=== PATIENT | male | born 1995 | race Two or more races ===

== ENCOUNTER 2017-11-11 13:31 | Emergency (ER) | payer OTHER ==
[2017-11-11 14:06] LABS: ADD MAN DIFF? NO
[2017-11-11 14:08] LABS: BASO % 0 % (0-3); EOS % 0 % (0-3); HEMATOCRIT 42.6 % (39.0-53.0); HEMOGLOBIN 14.8 g/dL (13.0-17.5); LYMPH # 0.7 x10^3/uL (1.0-4.8); LYMPH % 8 % (24-48); MEAN CORPUSCULAR HEMOGLOBIN 31 pg (25-35); MEAN CORPUSCULAR HGB CONC 35 g/dL (31-37); MEAN CORPUSCULAR VOLUME 90 fL (79-100); MONO # 0.7 x10^3/uL (0.0-1.1); MONO % 8 % (0-9); NEUT # 7.5 x10^3uL (1.8-7.7); NEUT % 84 % (31-73); PLATELET COUNT 181 x10^3/uL (140-400); RED BLOOD COUNT 4.72 x10^6/uL (4.30-5.70); RED CELL DISTRIBUTION WIDTH 12.8 % (11.5-14.5)
[2017-11-11 14:16] LABS: ANION GAP 5 (6-14); BLOOD UREA NITROGEN 9 mg/dL (8-26); BUN/CREATININE RATIO 13 (6-20); CALCIUM 8.8 mg/dL (8.5-10.1); CARBON DIOXIDE 29 mmol/L (21-32); CHLORIDE 104 mmol/L (98-107); CREATININE 0.7 mg/dL (0.7-1.3); GFR 143.8; GLUCOSE 123 mg/dL (70-99); POTASSIUM 3.8 mmol/L (3.5-5.1); SODIUM 138 mmol/L (136-145)
[2017-11-11 14:17] LABS: INR 1.1 (0.8-1.1); PARTIAL THROMBOPLASTIN TIME 32 SEC (24-38); PROTHROMBIN TIME PATIENT 13.7 SEC (11.7-14.0)
[2017-11-11 14:22] LABS: ALBUMIN 4.3 g/dL (3.4-5.0); ALBUMIN/GLOBULIN RATIO 1.2 (1.0-1.7); ALK PHOS 92 U/L (46-116); ALT (SGPT) 34 U/L (16-63); AST (SGOT) 29 U/L (15-37); TOTAL BILIRUBIN 0.9 mg/dL (0.2-1.0); TOTAL PROTEIN 7.8 g/dL (6.4-8.2)
[2017-11-11] MEDS: ONDANSETRON PF 4 MG/2 ML VIAL. IV (15:14)
[2017-11-11] MEDS: fentaNYL PF VIAL 100 MCG/2 ML VIAL IV (15:15)
[2017-11-11 15:20] LABS: ETHANOL < 10 mg/dL (0-10)
[2017-11-11] MEDS: HYDROcodone/APAP 5/325MG 1 TAB TABLET PO (16:00)
== END 2017-11-11 16:43 | disposition home or self-care (01) ==
LOC: ER 13:31
DX: S32.592A Other specified fracture of left pubis, initial encounter for closed fracture (principal); W11.XXXA Fall on and from ladder, initial encounter; Y93.89 Activity, other specified; Y99.8 Other external cause status; Y92.89 Other specified places as the place of occurrence of the external cause
CPT/HCPCS: 29515; 36415; 70450; 71045; 72125; 72128; 72170; 73562; 73590; 73610; 73630; 73700; 74176; 80053; 85025; 85610; 85730; 96374; 96375; 99285-25; G0480; J2405; J3010